=== PATIENT | male | born 1985 | race Hispanic/Latino ===

== ENCOUNTER 2017-02-02 10:49 | Emergency (ER) | payer SELFPAY ==
[2017-02-02] MEDS ORDERED: Ibuprofen 200 MG TAB ONE (12:05)
== END 2017-02-02 13:06 | disposition home or self-care (01) ==
LOC: NAV ERS 10:49
DX: H61.23 Impacted cerumen, bilateral (principal)
CPT/HCPCS: 69210

== ENCOUNTER 2020-06-14 13:55 | Emergency (ER) | payer OTHER, SELFPAY ==
[2020-06-15 18:58] LABS: SARS-CoV-2 MS2 Positive; SARS-CoV-2 N Gene Negative; SARS-CoV-2 S Gene Negative; SARS-CoV-2 by NAA Not Detected (NotDetected); SARS-CoV-2 orf1ab Negative
== END 2020-06-14 14:50 | disposition home or self-care (01) ==
LOC: NAV ERS 13:55
DX: J02.9 Acute pharyngitis, unspecified (principal); R09.81 Nasal congestion; Z20.828 Contact with and (suspected) exposure to other viral communicable diseases; I10 Essential (primary) hypertension
CPT/HCPCS: 87635; 99283; U0003

== ENCOUNTER 2021-06-10 11:17 | Emergency (ER) | payer SELFPAY ==
[2021-06-11 16:23] LABS: SARS-CoV-2 PCR by NAA DETECTED (NotDetected)
== END 2021-06-10 12:59 | disposition home or self-care (01) ==
LOC: NAV ERS 11:17
DX: U07.1 COVID-19 (principal); J12.82 Pneumonia due to coronavirus disease 2019; I10 Essential (primary) hypertension
CPT/HCPCS: 71045; 99283; U0003; U0005

== ENCOUNTER 2021-06-21 10:32 | Emergency (ER) | payer SELFPAY | END 2021-06-21 11:56 | disposition home or self-care (01) | LOC: NAV ERS 10:32 | DX: U07.1 COVID-19 (principal); I10 Essential (primary) hypertension | CPT/HCPCS: 99283 ==

== ENCOUNTER 2021-08-31 15:51 | Emergency (ER) | payer SELFPAY | END 2021-08-31 16:25 | disposition home or self-care (01) | LOC: NAV ERS 15:51 | DX: H92.01 Otalgia, right ear (principal); K02.9 Dental caries, unspecified; I10 Essential (primary) hypertension | CPT/HCPCS: 99282 ==

== ENCOUNTER 2022-07-16 13:57 | Emergency (ER) | payer OTHER, SELFPAY ==
[2022-07-16] MEDS ORDERED: Bacitracin 1 PK ONE (15:58)
[2022-07-16] MEDS ORDERED: Boostrix 0.5 ML (Tdap) VIAL (>/=7 yrs of age) ONE (15:59)
== END 2022-07-16 16:32 | disposition home or self-care (01) ==
LOC: NAV ERS 13:57
DX: S81.851A Open bite, right lower leg, initial encounter (principal); W54.0XXA Bitten by dog, initial encounter
CPT/HCPCS: 90471; 90715